=== PATIENT | male | born 1965 | race Asian ===

== ENCOUNTER 2016-10-29 13:18 | Emergency (ER) | payer OTHER ==
[2016-10-29 14:39] VITALS: BP 153/113
--- NOTE | 2016-10-29 15:32 | UC ---
Abdominal Pain Male HPI - HPI Summary HPI Summary: patient has had a couple days of oon and off abdominal pain in the lower abdomen , reports increased size of abdomen, is non compliant with HTN medication, complaining of headache, hx of Hep C although he is not very clear on treatments in the past. reports having a shot in his liver to dissolve the bad parts and be excreted in his BM's. - History of Current Complaint Chief Complaint: UCGI Stated Complaint: LOWER ABD PAIN Time Seen by Provider: 10/29/16 14:56 Hx Obtained From: Patient Onset/Duration: Sudden Onset, Lasting Days Timing: Constant Severity Initially: Moderate Severity Currently: Moderate Location: Discrete At: RLQ, Discrete At: LLQ Radiates: No Character: Aching, Sharp Aggravating Factor(s):: Nothing Alleviating Factor(s): Nothing - Allergies/Home Medications Allergies/Adverse Reactions: Allergies Allergy/AdvReac Type Severity Reaction Status Date / Time No Known Allergies Allergy Verified 03/16/14 14:53 PMH/Surg Hx/FS Hx/Imm Hx Previously Healthy: Yes Endocrine History Of: Denies: Diabetes, Thyroid Disease Cardiovascular History Of: Reports: Hypertension Denies: Cardiac Disorders Respiratory History Of: Denies: COPD, Asthma GI/ History Of: Denies: Ulcer Other History Of: Hepatitis C - Surgical History Surgical History: Yes Surgery Procedure, Year, and Place: hemorrhoidectomy - Family History Known Family History: Positive: Hypertension, Diabetes - Social History Alcohol Use: Occasionally Substance Use Type: None Smoking Status (MU): Light Every Day Tobacco Smoker Type: Cigarettes Amount Used/How Often: 1/2 to 1/3 ppd Have You Smoked in the Last Year: Yes Household Exposure Type: Cigarettes Review of Systems Constitutional: Negative Skin: Negative Eyes: Other - icteric ENT: Negative Respiratory: Negative Cardiovascular: Negative Gastrointestinal: Abdominal Pain Genitourinary: Negative Motor: Negative Neurovascular: Negative Musculoskeletal: Negative Neurological: Headache Psychological: Negative All Other Systems Reviewed And Are Negative: Yes Physical Exam Triage Information Reviewed: Yes Appearance: Well-Nourished, Ill-Appearing, Pain Distress Vital Signs: Initial Vital Signs Temp 98.5 F 10/29/16 14:32 Pulse 102 10/29/16 14:32 Resp 20 10/29/16 14:32 BP 153/113 10/29/16 14:32 Pulse Ox 100 10/29/16 14:32 Vital Signs Reviewed: Yes Eye Exam: Normal Eyes: Positive: Other: - sclera icteric and inflammed, hyphema in left eye noted ENT Exam: Normal ENT: Positive: Normal ENT inspection, Hearing grossly normal, Pharynx normal, Pharyngeal erythema, TMs normal Dental Exam: Normal Neck exam: Normal Neck: Positive: Supple, Nontender, No Lymphadenopathy Respiratory Exam: Normal Respiratory: Positive: Chest non-tender, Lungs clear, Normal breath sounds Cardiovascular: Positive: No Murmur, Pulses Normal, Tachycardia Abdomen Description: Positive: CVA Tenderness (R) - neg, CVA Tenderness (L) - neg, Distended - and fluctuant, pain with palpation is diffuse Bowel Sounds: Positive: Hyperactive Musculoskeletal: Positive: Strength Intact, ROM Intact, No Edema Neurological Exam: Normal Neurological: Positive: Alert, Muscle Tone Normal Psychological Exam: Normal Skin Exam: Normal Abd Pain Male Course/Dx - Course Course Of Treatment: hx obtained, exam performed, meds reviewed, patient is non compliant with his HTN meds, unclear on liver disease hx, do to the yellow eyes , ascites and HTN recommend he be transferred to the ER. Patient state he cant right now, will do it later, AMA paperwork signed, risks of not being evaluated given and patient expresses verbal understanding. - Differential Dx/Clinical Impression Differential Diagnosis/HQI/PQRI: Bowel Obstruction, Constipation, Diverticulitis , Hepatitis, Ureteral Stone, Urinary Tract Infection, Other - hernnia Provider Diagnoses: ascities. lower abdominal pain. Hypertension Discharge - Discharge Plan Condition: Stable Disposition: AGAINST MEDICAL ADVICE Referrals: Emmett Guevara MD [Primary Care Provider] -
== END 2016-10-29 15:56 | disposition left against medical advice (07) ==
LOC: UCEAST 13:18
DX: R18.8 Other ascites (principal); I10 Essential (primary) hypertension; F17.210 Nicotine dependence, cigarettes, uncomplicated; R10.30 Lower abdominal pain, unspecified; Z86.19 Personal history of other infectious and parasitic diseases
CPT/HCPCS: 99212; G0463

== ENCOUNTER 2016-10-30 11:36 | Emergency (ER) | payer OTHER ==
[2016-10-30] MEDS ORDERED: NS 0.9% 1000 ML* 1,000 ML IV ONE (15:29)
--- NOTE | 2016-10-30 16:04 | RAD ---
HISTORY: Chest pain COMPARISONS: June 26, 2004, report. Images are not available at the time of dictation VIEWS:1: Single frontal portable view of the chest at 3:45 PM FINDINGS: LINES AND TUBES: None. CARDIOMEDIASTINAL SILHOUETTE: The cardiomediastinal silhouette is normal for portable technique. PLEURA: The costophrenic angles are sharp. No pleural abnormalities are noted. LUNG PARENCHYMA: The lungs are clear. ABDOMEN: The upper abdomen is clear. There is no subphrenic gas. BONES AND SOFT TISSUES: No bone or soft tissue abnormalities are noted. IMPRESSION: NO ACTIVE CARDIOPULMONARY DISEASE.
[2016-10-30 16:06] LABS: Hematocrit 44 % (42-52); Hemoglobin 14.6 g/dl (14.0-18.0); Mean Corpuscular HGB Conc 33 g/dl (31-36); Mean Corpuscular Hemoglobin 28 pg (27-31); Mean Corpuscular Volume 85 fL (80-94); Mean Platelet Volume 8 um3 (7.4-10.4); Red Cell Distribution Width 15 % (10.5-15); White Blood Count 6.2 10^3/ul (3.5-10.8)
[2016-10-30 16:22] LABS: Albumin 4.2 g/dL (3.2-5.2); BUN/Creatinine Ratio 14.3 (8-20); C Reactive Protein 5.69 mg/L (< 5.00); Calcium 9.2 mg/dL (8.6-10.3); EGFR African American 113.9 (>60); EGFR Non-African American 88.6 (>60); Globulin 3.1 g/dL (2-4); Magnesium 2.3 mg/dL (1.9-2.7); Total Bilirubin 0.4 mg/dL (0.2-1.0); Total Protein 7.3 g/dL (6.4-8.9)
[2016-10-30 16:24] LABS: Troponin I 0.03 ng/mL (<0.04)
[2016-10-30 16:26] LABS: Potassium 3.9 mmol/L (3.5-5.0)
--- NOTE | 2016-10-30 16:47 | RAD ---
INDICATION: Left-sided testicular pain. COMPARISON: There are no prior studies available for comparison. TECHNIQUE: Multiple real-time images of the testicles were obtained including color Doppler images and Doppler tracings. FINDINGS: The testicles are normal in size and shape. There are a couple calcifications within the left testicle. No mass is seen. The right testicle measured 3.9 x 2.0 x 2.9 cm and the left testicle measured 3.7 x 1.7 x 2.6 cm. There is symmetric vascular flow within both testicles. The epididymides appear to be within normal limits. There are is small bilateral hydroceles. IMPRESSION: NO EVIDENCE FOR TESTICULAR TORSION OR EPIDIDYMITIS.
[2016-10-30] MEDS ORDERED: Iohexol 300* (CONTRAST) 10 ML SDV IV ONE (16:50)
[2016-10-30 16:56] LABS: TSH (Thyroid Stimulating Horm) 0.5 mcIU/mL (0.34-5.60)
[2016-10-30 18:50] LABS: Urine Bilirubin Negative (Negative); Urine Glucose Negative (Negative); Urine Nitrite Negative (Negative)
--- NOTE | 2016-10-30 18:51 | RAD ---
INDICATION: Left lower quadrant abdominal pain. COMPARISON: Comparison is made with a prior CT of the abdomen and pelvis from November 20, 2009. TECHNIQUE: A CT scan of the abdomen and pelvis was performed with intravenous and oral contrast following intravenous injection of 100 ml of Omnipaque 300 nonionic contrast. Contiguous axial sections were obtained from the lung bases through the symphysis pubis. Images were reconstructed in the coronal and sagittal planes. FINDINGS: The lung bases are clear. No pleural effusion is present. The liver has a lobulated contour suggesting the possibility of cirrhosis which appears unchanged from the prior exam The portal vein appears patent. No significant focal hepatic abnormality is seen. No calcified gallstones are noted. The spleen is within normal limits in size. The pancreas appears to be within normal limits. The kidneys and adrenal glands are normal in size. No hydronephrosis is seen. There are small bilateral renal cysts present. The aorta is normal in caliber and demonstrates homogeneous contrast opacification. No significant enlarged retroperitoneal lymph nodes are seen. The stomach, small and large bowel appear nondistended. The appendix is within normal limits. There is mild to moderate descending and sigmoid diverticulosis without evidence for diverticulitis. No free intraperitoneal air or fluid is seen. No significant focal osseous abnormality is seen. IMPRESSION: 1. NO EVIDENCE FOR ACUTE FINDING OR CAUSE FOR THE PATIENT'S ABDOMINAL PAIN IS SEEN. 2. THE LIVER HAS A MILDLY LOBULATED CONTOUR SUGGESTING THE POSSIBILITY OF CIRRHOSIS WHICH IS UNCHANGED FROM THE PRIOR STUDY.
--- NOTE | 2016-10-30 19:28 | ED ---
Maryuri Howe Alok, scribed for Patel Bueno MD on 10/30/16 at 1551 . Abdominal Pain/Male - HPI Summary HPI Summary: 51 y/o male presents to the ED with LLQ pain ongoing for the last few months and worsening today. Patient states that this abd pain is worsened by palpation , heavy lifting, and uncomfortable positioning as well as improves with rest. At worse his abd pain registers at a 7 out of 10 in severity. Pt also felt testicular pain two days ago as well as blood in stool off and on again for the past few months. Pt denies feeling lumps or bumps or recent abd-related surgery. His BM have been normal and pt denies dysuria. Pt also adds sharp left sided CP yesterday while holding his daughter at a 9 out of 10 in severity which lasted about 30 seconds before subsiding spontaneously with rest. This pain did not radiate to other part of the body and was accompanied by what felt like a palpitation. Pt denies accompanying SOB , nausea, diaphoresis, or lightheadedness. The pt states that he has had similar bouts of CP every two weeks ago for the past few months. PMHx includes Hepatitis C, hemorrhoids, HTN, and HLD. Pt smokes cigarettes regularly and denies h/o blot clots. The patient is not on any mediations. FHMx includes CAD, HTN, Stroke, and aneurysm. - History of Current Complaint Chief Complaint: EDAbdPain Stated Complaint: STOMACH PAIN Time Seen by Provider: 10/30/16 14:51 Hx Obtained From: Patient Onset/Duration: Gradual Onset, Lasting Weeks, Still Present Timing: Constant Severity Initially: Moderate Severity Currently: Moderate Pain Intensity: 5 Pain Scale Used: 0-10 Numeric Location: Discrete At: LLQ, Groin Radiates: No Aggravating Factor(s): Other: - Uncomfortable position, Heavy lifting, Palpation Alleviating Factor(s): Other: - Restful position Associated Signs And Symptoms: Positive: Chest Pain, Blood in Stool, Other - Testicular Pain. Negative: Diaphoresis, Urinary Symptoms, Nausea - Allergies/Home Medications Allergies/Adverse Reactions: Allergies Allergy/AdvReac Type Severity Reaction Status Date / Time No Known Allergies Allergy Verified 03/16/14 14:53 PMH/Surg Hx/FS Hx/Imm Hx Endocrine/Hematology History: Denies: Hx Diabetes, Hx Thyroid Disease Cardiovascular History: Reports: Hx Hypertension Respiratory History: Denies: Hx Asthma, Hx Chronic Obstructive Pulmonary Disease (COPD) GI History: Denies: Hx Ulcer - Surgical History Surgery Procedure, Year, and Place: hemorrhoidectomy Infectious Disease History: Denies: Hx Clostridium Difficile, Hx Hepatitis, Hx Human Immunodeficiency Virus (HIV), Hx of Known/Suspected MRSA, Hx Shingles, Hx Tuberculosis, Hx Known/ Suspected VRE, Hx Known/Suspected VRSA, History Other Infectious Disease, Traveled Outside the [place] in Last 30 Days - Family History Known Family History: Positive: Hypertension, Diabetes - Social History Occupation: Employed Full-time Lives: With Family Alcohol Use: Occasionally Substance Use Type: Reports: None Smoking Status (MU): Light Every Day Tobacco Smoker Type: Cigarettes Amount Used/How Often: 1/2 to 1/3 ppd Have You Smoked in the Last Year: Yes Review of Systems Negative: Fever, Skin Diaphoresis Positive: Chest Pain Negative: Shortness Of Breath Positive: Abdominal Pain. Negative: Nausea Genitourinary: Other - Testicular Pain Negative: dysuria Negative: Edema All Other Systems Reviewed And Are Negative: Yes Physical Exam Triage Information Reviewed: Yes Vital Signs On Initial Exam: Initial Vitals Temp Pulse Resp BP Pulse Ox 98.3 F 87 20 158/98 100 10/30/16 11:49 10/30/16 11:49 10/30/16 11:49 10/30/16 11:49 10/30/16 11:49 Vital Signs Reviewed: Yes Appearance: Positive: Well-Appearing, No Pain Distress Skin: Positive: Warm, Skin Color Reflects Adequate Perfusion, Dry Head/Face: Positive: Normal Head/Face Inspection Eyes: Positive: EOMI, NHAN ENT: Positive: Normal ENT inspection Neck: Positive: Supple, Nontender Respiratory/Lung Sounds: Positive: Clear to Auscultation, Breath Sounds Present Cardiovascular: Positive: RRR Abdomen Description: Positive: Soft, Other: - Mild LLQ tenderness. Bowel Sounds: Positive: Present Male Genital Exam: Positive: other - No masses. Nontender. No lesions. Musculoskeletal: Positive: Normal, Strength/ROM Intact. Negative: Edema Left, Edema Right Neurological: Positive: Normal, Sensory/Motor Intact, Alert, Oriented to Person Place, Time Psychiatric: Positive: Affect/Mood Appropriate - [place] Coma Scale Coma Scale Total: 15 Diagnostics - Vital Signs Vital Signs Temp Pulse Resp BP Pulse Ox 10/30/16 14:44 97.5 F 78 20 183/111 98 10/30/16 14:30 75 22 183/111 98 10/30/16 14:28 76 99 10/30/16 14:27 183/110 10/30/16 14:14 97.5 F 77 20 176/116 100 10/30/16 13:04 97.2 F 72 20 169/105 100 10/30/16 11:49 98.3 F 87 20 158/98 100 - Laboratory Lab Results: Lab Results 10/30/16 10/30/16 10/30/16 Range/Units 15:45 15:45 15:45 WBC 6.2 (3.5-10.8) 10^3/ul RBC 5.20 (4.0-5.4) 10^6/ul Hgb 14.6 (14.0-18.0) g/dl Hct 44 (42-52) % MCV 85 (80-94) fL MCH 28 (27-31) pg MCHC 33 (31-36) g/dl RDW 15 (10.5-15) % Plt Count 226 (150-450) 10^3/ul MPV 8 (7.4-10.4) um3 Neut % (Auto) 47.1 (38-83) % Lymph % (Auto) 38.4 (25-47) % [place] % (Auto) 11.5 H (1-9) % Eos % (Auto) 2.4 (0-6) % Baso % (Auto) 0.6 (0-2) % Absolute Neuts (auto) 2.9 (1.5-7.7) 10^3/ul Absolute Lymphs (auto) 2.4 (1.0-4.8) 10^3/ul Absolute Monos (auto) 0.7 (0-0.8) 10^3/ul Absolute Eos (auto) 0.1 (0-0.6) 10^3/ul Absolute Basos (auto) 0 (0-0.2) 10^3/ul Absolute Nucleated RBC 0.01 10^3/ul Nucleated RBC % 0.2 INR (Anticoag Therapy) 0.89 (0.89-1.11) APTT 29.4 (26.0-36.3) seconds D-Dimer, Quantitative < 200 (Less Than 230) ng/mL Sodium 138 (133-145) mmol/L Potassium 3.9 (3.5-5.0) mmol/L Chloride 105 (101-111) mmol/L Carbon Dioxide 27 (22-32) mmol/L Anion Gap 6 (2-11) mmol/L BUN 13 (6-24) mg/dL Creatinine 0.91 (0.67-1.17) mg/dL Est GFR ( Amer) 113.9 (>60) Est GFR (Non-Af Amer) 88.6 (>60) BUN/Creatinine Ratio 14.3 (8-20) Glucose 95 (70-100) mg/dL Lactic Acid (0.5-2.0) mmol/L Calcium 9.2 (8.6-10.3) mg/dL Magnesium 2.3 (1.9-2.7) mg/dL Total Bilirubin 0.40 (0.2-1.0) mg/dL AST 25 (13-39) U/L ALT 28 (7-52) U/L Alkaline Phosphatase 61 (34-104) U/L Total Creatine Kinase 446 H (10-223) U/L CK-MB (CK-2) 6.4 H (0.6-6.3) ng/mL Troponin I 0.03 (<0.04) ng/mL C-Reactive Protein 5.69 H (< 5.00) mg/L B-Natriuretic Peptide ( - 100) pg/mL Total Protein 7.3 (6.4-8.9) g/dL Albumin 4.2 (3.2-5.2) g/dL Globulin 3.1 (2-4) g/dL Albumin/Globulin Ratio 1.4 (1-3) Lipase 39 (11.0-82.0) U/L TSH 0.50 (0.34-5.60) mcIU/mL Urine Color Urine Appearance Urine pH (5-9) Ur Specific [place] (1.010-1.030) Urine Protein (Negative) Urine Ketones (Negative) Urine Blood (Negative) Urine Nitrate (Negative) Urine Bilirubin (Negative) Urine Urobilinogen (Negative) Ur Leukocyte Esterase (Negative) Urine Glucose (Negative) Urine Ascorbic Acid (Negative) 10/30/16 10/30/16 10/30/16 Range/Units 15:45 15:45 18:35 WBC (3.5-10.8) 10^3/ul RBC (4.0-5.4) 10^6/ul Hgb (14.0-18.0) g/dl Hct (42-52) % MCV (80-94) fL MCH (27-31) pg MCHC (31-36) g/dl RDW (10.5-15) % Plt Count (150-450) 10^3/ul MPV (7.4-10.4) um3 Neut % (Auto) (38-83) % Lymph % (Auto) (25-47) % [place] % (Auto) (1-9) % Eos % (Auto) (0-6) % Baso % (Auto) (0-2) % Absolute Neuts (auto) (1.5-7.7) 10^3/ul Absolute Lymphs (auto) (1.0-4.8) 10^3/ul Absolute Monos (auto) (0-0.8) 10^3/ul Absolute Eos (auto) (0-0.6) 10^3/ul Absolute Basos (auto) (0-0.2) 10^3/ul Absolute Nucleated RBC 10^3/ul Nucleated RBC % INR (Anticoag Therapy) (0.89-1.11) APTT (26.0-36.3) seconds D-Dimer, Quantitative (Less Than 230) ng/mL Sodium (133-145) mmol/L Potassium (3.5-5.0) mmol/L Chloride (101-111) mmol/L Carbon Dioxide (22-32) mmol/L Anion Gap (2-11) mmol/L BUN (6-24) mg/dL Creatinine (0.67-1.17) mg/dL Est GFR ( Amer) (>60) Est GFR (Non-Af Amer) (>60) BUN/Creatinine Ratio (8-20) Glucose (70-100) mg/dL Lactic Acid 1.3 (0.5-2.0) mmol/L Calcium (8.6-10.3) mg/dL Magnesium (1.9-2.7) mg/dL Total Bilirubin (0.2-1.0) mg/dL AST (13-39) U/L ALT (7-52) U/L Alkaline Phosphatase (34-104) U/L Total Creatine Kinase (10-223) U/L CK-MB (CK-2) (0.6-6.3) ng/mL Troponin I (<0.04) ng/mL C-Reactive Protein (< 5.00) mg/L B-Natriuretic Peptide 60 ( - 100) pg/mL Total Protein (6.4-8.9) g/dL Albumin (3.2-5.2) g/dL Globulin (2-4) g/dL Albumin/Globulin Ratio (1-3) Lipase (11.0-82.0) U/L TSH (0.34-5.60) mcIU/mL Urine Color Yellow Urine Appearance Clear Urine pH 8.0 (5-9) Ur Specific [place] 1.019 (1.010-1.030) Urine Protein Negative (Negative) Urine Ketones Negative (Negative) Urine Blood Negative (Negative) Urine Nitrate Negative (Negative) Urine Bilirubin Negative (Negative) Urine Urobilinogen Negative (Negative) Ur Leukocyte Esterase Negative (Negative) Urine Glucose Negative (Negative) Urine Ascorbic Acid * H (Negative) Result Diagrams: 10/30/16 15:45 10/30/16 15:45 Lab Statement: Any lab studies that have been ordered have been reviewed, and results considered in the medical decision making process. - Radiology CXR Xray Interpretation: Positive (See Comments) - IMPRESSION: NO ACTIVE CARDIOPULMONARY DISEASE. Radiology Interpretation Completed By: Radiologist - CT Abd/Pel CT CT Interpretation: Positive (See Comments) - IMPRESSION: 1. NO EVIDENCE FOR ACUTE FINDING OR CAUSE FOR THE PATIENT'S ABDOMINAL PAIN IS SEEN. 2. THE LIVER HAS A MILDLY LOBULATED CONTOUR SUGGESTING THE POSSIBILITY OF CIRRHOSIS WHICH IS UNCHANGED FROM THE PRIOR STUDY. CT Interpretation Completed By: Radiologist - Additional Comments Diagnostic Additional Comments: Testicular US - IMPRESSION: NO EVIDENCE FOR TESTICULAR TORSION OR EPIDIDYMITIS. Re-Evaluation - Re-Evaluation First Eval Re-Evaluation Time: 19:20 Abdominal Pain Fem Course/Dx - Course Course Of Treatment: NO CRITICAL CARE TIME Assessment/Plan: DISCUSSED RESULTS WITH PATIENT. CHEST PAIN WAS 10/29/16 SO, NO TROPONIN RECHECK. DISCUSSED ADMISSION FOR CHEST PAIN/STRESS TEST. PATIENT DECLINED, PREFERS TO F/U WITH PMD OUT PATIENT. DISCHARGE HOME STABLE. - Diagnoses Provider Diagnoses: Abdominal pain, Chest pain Discharge - Discharge Plan Condition: Stable Disposition: HOME Patient Education Materials: Acute Abdominal Pain (ED), Chest Pain (ED) Forms: *Work Release Referrals: Emmett Guevara MD [Primary Care Provider] - Additional Instructions: FOLLOW UP WITH YOUR DOCTOR. DISCUSS HAVING A HEART STRESS TEST FOR YOUR CHEST PAIN EVALUATION. RETURN TO THE EMERGENCY DEPARTMENT FOR ANY WORSENING OF YOUR CONDITION; CHEST PAIN, SHORTNESS OF BREATH, PAIN, YOU FEEL ILL OR QUESTIONS OR CONCERNS. The documentation as recorded by the Maryuri bernabe Alok accurately reflects the service I personally performed and the decisions made by me, Patel Bueno MD.
[2016-10-30] MEDS ORDERED: Nadolol TAB* 40 MG PO ONE (19:45)
[2016-10-30] MEDS ORDERED: Diltiazem TAB* 60 MG PO ONE (20:59)
[2016-10-30 21:59] VITALS: BP 179/115
== END 2016-10-30 21:27 | disposition home or self-care (01) ==
LOC: ED 11:36
DX: R10.32 Left lower quadrant pain (principal); R07.9 Chest pain, unspecified; I10 Essential (primary) hypertension; E78.5 Hyperlipidemia, unspecified; F17.210 Nicotine dependence, cigarettes, uncomplicated; B19.20 Unspecified viral hepatitis C without hepatic coma
CPT/HCPCS: 36415; 71010; 74177; 76870; 80053; 81003; 82550; 82553; 83605; 83690; 83735; 83880; 84443; 84484; 85025; 85379; 85610; 85730; 86140; 96360; 99285; A9270-GY; Q9967

== ENCOUNTER 2017-09-30 14:33 | Emergency (ER) | payer OTHER ==
[2017-09-30] MEDS ORDERED: Lidocaine 2% VISCOUS* 15 ML UDC PO ONE (15:58)
[2017-09-30] MEDS ORDERED: Pantoprazole IV* 40 MG IV ONE (15:58)
[2017-09-30] MEDS ORDERED: Ondansetron INJ* 2 MG/ML VIAL IV ONE (15:58)
[2017-09-30] MEDS ORDERED: Al Hydrox/Mg Hydrox/Simet LIQ* 30 ML UDC PO ONE (15:58)
[2017-09-30] MEDS: NS 0.9% 1000 ML* 2,000 ML IV ONE (16:22)
[2017-09-30 16:28] LABS: ABS Basophils 0 10^3/ul (0-0.2); ABS Eosinophils 0.1 10^3/ul (0-0.6); ABS Lymphocytes 2.2 10^3/ul (1.0-4.8); ABS Monocytes 0.6 10^3/ul (0-0.8); ABS Neutrophils 3.5 10^3/ul (1.5-7.7); ABS Nucleated RBC 0 10^3/ul; Eosinophil % 1.7 % (0-6); Hematocrit 39 % (42-52); Hemoglobin 13.1 g/dl (14.0-18.0); Lymphocyte % 34.4 % (25-47); Mean Corpuscular HGB Conc 34 g/dl (31-36); Mean Corpuscular Hemoglobin 28 pg (27-31); Mean Corpuscular Volume 84 fL (80-94); Mean Platelet Volume 7.5 um3 (7.4-10.4); Nucleated Red Blood Cells % 0; Platelet Count 215 10^3/ul (150-450); Red Blood Count 4.68 10^6/ul (4.0-5.4); Red Cell Distribution Width 16 % (10.5-15); White Blood Count 6.4 10^3/ul (3.5-10.8)
[2017-09-30 16:44] LABS: INR 0.91 (0.77-1.02); Urine Appearance Clear; Urine Blood 1+ (Negative); Urine Color Yellow; Urine Ketones Negative (Negative); Urine Protein Negative (Negative); Urine Specific Gravity 1.017 (1.010-1.030); Urine Urobilinogen Negative (Negative)
[2017-09-30 16:48] LABS: EGFR Non-African American 82.9 (>60)
[2017-09-30] MEDS ORDERED: Morphine INJ* 4 MG/ML 1 ML SYRINGE (NEW SYRINGE VERSION) IV ONE ×2 (17:27→20:27)
--- NOTE | 2017-09-30 17:50 | RAD ---
INDICATION: Upper abdominal pain COMPARISON: Chest x-ray dated May 14, 2017 TECHNIQUE: Single AP portable view of the chest was obtained. FINDINGS: Image quality is compromised due to the relative inferiority of a portable chest x-ray. The heart and mediastinum exhibit normal size and contour. The lungs are grossly clear. There is no evidence of a large pleural effusion. Visualized bones are normal for the patient's age. IMPRESSION: No radiographic evidence for acute cardiopulmonary abnormality on this portable chest x-ray.
[2017-09-30] MEDS ORDERED: Iohexol 300* (CONTRAST) 10 ML SDV IV ONE (17:51)
--- NOTE | 2017-09-30 19:04 | ED ---
Carlos Howe Thomas, scribed for Patel Bueno MD on 09/30/17 at 1622 . Abdominal Pain/Male - HPI Summary HPI Summary: The patient is a 52 year old male complaining of upper abdominal pain for the last three days. He had a colonoscopy about three weeks ago and since then he has noted small amounts of blood in his stool in the morning. He denies lightheadedness. - History of Current Complaint Chief Complaint: EDAbdPain Stated Complaint: ABD PAIN Time Seen by Provider: 09/30/17 15:44 Hx Obtained From: Patient Onset/Duration: Lasting Days - 3, Still Present Timing: Constant Severity Currently: Severe Pain Intensity: 10 Pain Scale Used: 0-10 Numeric Location: Discrete At: RUQ, Discrete At: LUQ, Epigastric Aggravating Factor(s): Nothing Alleviating Factor(s): Nothing Associated Signs And Symptoms: Positive: Blood in Stool - Allergies/Home Medications Allergies/Adverse Reactions: Allergies Allergy/AdvReac Type Severity Reaction Status Date / Time No Known Allergies Allergy Verified 03/16/14 14:53 Home Medications: Home Medications Amitriptyline TAB* [Elavil TAB*] 25 mg PO BEDTIME 09/30/17 [History Confirmed ] NIFEdipine ER TAB* [Procardia Xl TAB*] 90 mg PO DAILY 09/30/17 [History Confirmed 09/30/17] Nadolol (NF) 20 mg PO DAILY 09/30/17 [History Confirmed 09/30/17] Omeprazole CAP* [Prilosec CAP* 20 MG] 40 mg PO 0700 09/30/17 [History Confirmed 09/30/17] Spironolactone TAB* [Aldactone TAB*] 25 mg PO DAILY 09/30/17 [History Confirmed 09/30/17] Valsartan/HCTZ 320/25(NF) [Diovan Hct 320/25(NF)] 1 tab PO DAILY 09/30/17 [ History Confirmed 09/30/17] PMH/Surg Hx/FS Hx/Imm Hx Endocrine/Hematology History: Denies: Hx Diabetes, Hx Thyroid Disease Cardiovascular History: Reports: Hx Hypertension Respiratory History: Denies: Hx Asthma, Hx Chronic Obstructive Pulmonary Disease (COPD) GI History: Denies: Hx Ulcer - Surgical History Surgery Procedure, Year, and Place: hemorrhoidectomy Infectious Disease History: No Infectious Disease History: Denies: Hx Clostridium Difficile, Hx Hepatitis, Hx Human Immunodeficiency Virus (HIV), Hx of Known/Suspected MRSA, Hx Shingles, Hx Tuberculosis, Hx Known/ Suspected VRE, Hx Known/Suspected VRSA, History Other Infectious Disease, Traveled Outside the [place] in Last 30 Days - Family History Known Family History: Positive: Hypertension, Diabetes, Other - Mother's side: [place]. - Social History Alcohol Use: Occasionally Substance Use Type: Reports: None Smoking Status (MU): Light Every Day Tobacco Smoker Type: Cigarettes Amount Used/How Often: 1/2 to 1/3 ppd Have You Smoked in the Last Year: Yes Review of Systems Negative: Fever Positive: Abdominal Pain, Other - Blood in stool Neurological: Other - Lightheadedness All Other Systems Reviewed And Are Negative: Yes Physical Exam - Summary Physical Exam Summary: General: well-appearing, mild pain distress Skin: warm, color reflects adequate perfusion, dry Head: normal Eyes: EOMI, NHAN ENT: normal Neck: supple, nontender Respiratory: CTA, breath sounds present Cardiovascular: RRR Abdomen: Soft. Tender to palpation to the epigasrium and LUQ. Bowel: hypoactive Musculoskeletal: normal, strength/ROM intact Neurological: normal, sensory/motor intact, A&O x3 Psycholoegical: affect/mood appropriat Triage Information Reviewed: Yes Vital Signs On Initial Exam: Initial Vitals Temp Pulse Resp BP Pulse Ox 98.3 F 81 20 195/114 99 09/30/17 14:35 09/30/17 14:35 09/30/17 14:35 09/30/17 14:35 09/30/17 14:35 Vital Signs Reviewed: Yes Diagnostics - Vital Signs Vital Signs Temp Pulse Resp BP Pulse Ox 09/30/17 14:35 98.3 F 81 20 195/114 99 - Laboratory Lab Results: Lab Results 09/30/17 09/30/17 09/30/17 Range/Units 16:15 16:15 16:15 WBC 6.4 (3.5-10.8) 10^3/ul RBC 4.68 (4.0-5.4) 10^6/ul Hgb 13.1 L (14.0-18.0) g/dl Hct 39 L (42-52) % MCV 84 (80-94) fL MCH 28 (27-31) pg MCHC 34 (31-36) g/dl RDW 16 H (10.5-15) % Plt Count 215 (150-450) 10^3/ul MPV 7.5 (7.4-10.4) um3 Neut % (Auto) 54.2 (38-83) % Lymph % (Auto) 34.4 (25-47) % [place] % (Auto) 9.1 H (0-7) % Eos % (Auto) 1.7 (0-6) % Baso % (Auto) 0.6 (0-2) % Absolute Neuts (auto) 3.5 (1.5-7.7) 10^3/ul Absolute Lymphs (auto) 2.2 (1.0-4.8) 10^3/ul Absolute Monos (auto) 0.6 (0-0.8) 10^3/ul Absolute Eos (auto) 0.1 (0-0.6) 10^3/ul Absolute Basos (auto) 0 (0-0.2) 10^3/ul Absolute Nucleated RBC 0 10^3/ul Nucleated RBC % 0 INR (Anticoag Therapy) 0.91 (0.77-1.02) APTT 29.7 (26.0-36.3) seconds Sodium 136 (133-145) mmol/L Potassium 3.5 (3.5-5.0) mmol/L Chloride 103 (101-111) mmol/L Carbon Dioxide 26 (22-32) mmol/L Anion Gap 7 (2-11) mmol/L BUN 12 (6-24) mg/dL Creatinine 0.96 (0.67-1.17) mg/dL Est GFR ( Amer) 106.6 (>60) Est GFR (Non-Af Amer) 82.9 (>60) BUN/Creatinine Ratio 12.5 (8-20) Glucose 91 (70-100) mg/dL Lactic Acid (0.5-2.0) mmol/L Calcium 9.7 (8.6-10.3) mg/dL Magnesium 2.0 (1.9-2.7) mg/dL Total Bilirubin 0.30 (0.2-1.0) mg/dL AST 21 (13-39) U/L ALT 24 (7-52) U/L Alkaline Phosphatase 63 (34-104) U/L Troponin I 0.04 H* (<0.04) ng/mL C-Reactive Protein 14.92 H (< 5.00) mg/L Total Protein 7.7 (6.4-8.9) g/dL Albumin 4.4 (3.2-5.2) g/dL Globulin 3.3 (2-4) g/dL Albumin/Globulin Ratio 1.3 (1-3) Lipase 29 (11.0-82.0) U/L TSH 0.59 (0.34-5.60) mcIU/mL Urine Color Urine Appearance Urine pH (5-9) Ur Specific [place] (1.010-1.030) Urine Protein (Negative) Urine Ketones (Negative) Urine Blood (Negative) Urine Nitrate (Negative) Urine Bilirubin (Negative) Urine Urobilinogen (Negative) Ur Leukocyte Esterase (Negative) Urine WBC (Auto) (Absent) Urine RBC (Auto) (Absent) Ur Squamous Epith Cells (Absent) Urine Bacteria (Absent) Urine Glucose (Negative) 09/30/17 09/30/17 Range/Units 16:15 16:15 WBC (3.5-10.8) 10^3/ul RBC (4.0-5.4) 10^6/ul Hgb (14.0-18.0) g/dl Hct (42-52) % MCV (80-94) fL MCH (27-31) pg MCHC (31-36) g/dl RDW (10.5-15) % Plt Count (150-450) 10^3/ul MPV (7.4-10.4) um3 Neut % (Auto) (38-83) % Lymph % (Auto) (25-47) % [place] % (Auto) (0-7) % Eos % (Auto) (0-6) % Baso % (Auto) (0-2) % Absolute Neuts (auto) (1.5-7.7) 10^3/ul Absolute Lymphs (auto) (1.0-4.8) 10^3/ul Absolute Monos (auto) (0-0.8) 10^3/ul Absolute Eos (auto) (0-0.6) 10^3/ul Absolute Basos (auto) (0-0.2) 10^3/ul Absolute Nucleated RBC 10^3/ul Nucleated RBC % INR (Anticoag Therapy) (0.77-1.02) APTT (26.0-36.3) seconds Sodium (133-145) mmol/L Potassium (3.5-5.0) mmol/L Chloride (101-111) mmol/L Carbon Dioxide (22-32) mmol/L Anion Gap (2-11) mmol/L BUN (6-24) mg/dL Creatinine (0.67-1.17) mg/dL Est GFR ( Amer) (>60) Est GFR (Non-Af Amer) (>60) BUN/Creatinine Ratio (8-20) Glucose (70-100) mg/dL Lactic Acid 0.8 (0.5-2.0) mmol/L Calcium (8.6-10.3) mg/dL Magnesium (1.9-2.7) mg/dL Total Bilirubin (0.2-1.0) mg/dL AST (13-39) U/L ALT (7-52) U/L Alkaline Phosphatase (34-104) U/L Troponin I (<0.04) ng/mL C-Reactive Protein (< 5.00) mg/L Total Protein (6.4-8.9) g/dL Albumin (3.2-5.2) g/dL Globulin (2-4) g/dL Albumin/Globulin Ratio (1-3) Lipase (11.0-82.0) U/L TSH (0.34-5.60) mcIU/mL Urine Color Yellow Urine Appearance Clear Urine pH 5.0 (5-9) Ur Specific [place] 1.017 (1.010-1.030) Urine Protein Negative (Negative) Urine Ketones Negative (Negative) Urine Blood 1+ A (Negative) Urine Nitrate Negative (Negative) Urine Bilirubin Negative (Negative) Urine Urobilinogen Negative (Negative) Ur Leukocyte Esterase Negative (Negative) Urine WBC (Auto) Trace(0-5/hpf) (Absent) Urine RBC (Auto) Trace(0-2/hpf) (Absent) Ur Squamous Epith Cells Present A (Absent) Urine Bacteria Absent (Absent) Urine Glucose Negative (Negative) Result Diagrams: 09/30/17 16:15 09/30/17 16:15 Lab Statement: Any lab studies that have been ordered have been reviewed, and results considered in the medical decision making process. - Radiology CXR Xray Interpretation: No Acute Changes - IMPRESSION: No radiographic evidence for acute cardiopulmonary abnormality on this portable chest x-ray. Dr. Bueno has reviewed this report. Radiology Interpretation Completed By: Radiologist - CT CT Abd/Pel CT Interpretation Completed By: ED Physician - READ PENDING--SEE MEDITECH - EKG 16:00 Cardiac Rate: NL EKG Rhythm: Sinus Rhythm - at 62 BPM Ectopy: None EKG Interpretation: ST elevations, probably normal, early repolarization pattern. Abdominal Pain Fem Course/Dx - Course Course Of Treatment: Medications reviewed. BP noted and patient urged follow up with primary care. - Diagnoses Provider Diagnoses: Uncontrolled hypertension, Abdominal pain Discharge - Sign-Out/Discharge Documenting (check all that apply): Sign-Out Patient Signing out patient TO: Oziel Bolton - REPEAT TROPONIN AND CT ABD/PELVIS READ PENDING - Discharge Plan Condition: Stable Referrals: Emmett Guevara MD [Primary Care Provider] - - Billing Disposition and Condition Condition: STABLE The documentation as recorded by the Carlos bernabe Thomas accurately reflects the service I personally performed and the decisions made by , Patel Bueno MD.
--- NOTE | 2017-09-30 19:19 | RAD ---
CLINICAL HISTORY: Upper abdominal pain and hematochezia COMPARISON: Most recent CT of the abdomen and pelvis is dated October 30, 2016 TECHNIQUE: Contrast enhanced CT examination of the abdomen and pelvis from the lung bases through the initial tuberosities. The patient received 100 mL Omnipaque 300 intravenously prior to imaging.The patient received oral contrast as well prior to imaging. FINDINGS: Unless otherwise specified comparisons below reference the October 30, 2016 CT examination VISUALIZED LUNG BASES: The visualized lung bases are grossly clear. There is no pleural effusion. ABDOMEN AND PELVIS: Similar to the prior CT examination, the external contour of the left lobe of the liver is lobular. There are no focal masses. There is no pathologic dilatation of the portal vein is system. The spleen, pancreas and adrenal glands are grossly normal in appearance. The gallbladder is normal. The kidneys are normal in appearance without focal mass, calcification or signs of hydronephrosis. Fluid density renal cysts are noted. The oral contrast has progressed as far as the cecum. The small and large bowel are not distended. The partially gas and stool-filled appendix is identified in the right lower quadrant measuring 5 mm in diameter (coronal images 41 and 45). There are scattered diverticula at the rectosigmoid colon but no focal inflammatory changes characteristic of acute diverticulitis. There is no gross retroperitoneal or mesenteric lymphadenopathy. The pelvic viscera is normal in appearance. The abdominal aorta and iliac arteries are normal in course and diameter. Degenerative changes include multilevel loss of intervertebral disc height involving the lower thoracic and lumbar spine.There are no sinister bone lesions. IMPRESSION: 1. There is no CT apparent acute gastrointestinal abnormality that would indicate that would account for the patient's current clinical presentation. 2. The service of the liver is lobular, similar to prior CT examinations. This appearance could be seen in the setting of cirrhosis. Please correlate to LFTs. 3. Additional chronic and degenerative changes described in the body the report.
--- NOTE | 2017-09-30 20:54 | ED ---
Kofi Howe Stephanie, michelineibed for Oziel Bolton MD on 09/30/17 at 2018 . Progress - Progress Note Progress Note: CT abd/Pelvis reveals: 1. There is no CT apparent acute gastrointestinal abnormality that would indicate that would account for the patient's current clinical presentation. 2. The service of the liver is lobular, similar to prior CT examinations. This appearance could be seen in the setting of cirrhosis. Please correlate to LFTs. 3. Additional chronic and degenerative changes described in the body the report. ED physician has reviewed this report. - EKG/XRAY/CT EKG: NSR - 20:36, 63 BPM, unchanged from - isolated T wave inversion in lead III seen on prior EKGs Comments: No acute ischemic ST changes, no ectopy Re-Evaluation - Re-Evaluation First Eval Re-Evaluation Time: 20:25 Change: Improved - The patient feels mildly improved. He has minimal abd tenderness at this time. ED physician discussed the importance of follow-up with a GI physician and planner internship. The patient agrees to return to the ED for any worsening symptoms. Course/Dx - Course Course Of Treatment: Medications reviewed. BP noted and patient urged follow up with primary care. Repeat troponin is negative. Repeat EKG is unremarkable. The pt denies CP or SOB at this time. He agrees to and understands discharge instructions.Pt feels better after medications received. Pt is in no acute distress. - Diagnoses Provider Diagnoses: Uncontrolled hypertension, Abdominal pain, Diverticulosis, Chest pain Discharge - Sign-Out/Discharge Documenting (check all that apply): Discharge - Discharge Plan Condition: Stable Disposition: HOME Patient Education Materials: Acute Abdominal Pain (ED), Chest Pain (ED) Forms: *Work Release Referrals: Emmett Guevara MD [Primary Care Provider] - Wilfredo Lester MD [Medical Doctor] - Additional Instructions: PLEASE TAKE BLOOD PRESSURE MEDICATIONS DIRECTED PLEASE MAKE AN APPOINTMENT FIRST THING IN THE MORNING TO BE SEEN BY A CLEANING STAFF SUPERVISOR AND GI DOCTOR WITHIN 1-2 WEEKS PLEASE RETURN IMMEDIATELY TO THE ER IF YOU HAVE ANY WORSENING OR CONCERNING SYMPTOMS PLEASE MAKE AN APPOINTMENT TO BE SEEN BY YOUR PRIMARY CARE DOCTOR WITHIN 1 WEEK - Billing Disposition and Condition Condition: STABLE Disposition: HOME The documentation as recorded by the Kofi bernabe Stephanie accurately reflects the service I personally performed and the decisions made by me, Oziel Bolton MD.
[2017-09-30 21:14] VITALS: BP 184/112
== END 2017-09-30 21:12 | disposition home or self-care (01) ==
LOC: ED 14:33
DX: R10.12 Left upper quadrant pain (principal); R10.11 Right upper quadrant pain; R10.13 Epigastric pain; K92.1 Melena; I10 Essential (primary) hypertension; F17.210 Nicotine dependence, cigarettes, uncomplicated
CPT/HCPCS: 36415; 71045; 74177; 80053; 81003; 81015; 83605; 83690; 83735; 84443; 84484; 85025; 85610; 85730; 86140; 87086; 93005; 96374; 96375; 96376; 99283; A9270-GY; J2270; J2405; Q9967

== ENCOUNTER 2019-03-23 12:30 | Emergency (ER) | payer OTHER ==
[2019-03-23 13:05] LABS: ABS Eosinophils 0.1 10^3/ul (0-0.6); ABS Lymphocytes 2.3 10^3/ul (1.0-4.8); ABS Monocytes 0.6 10^3/ul (0-0.8); ABS Neutrophils 2.2 10^3/ul (1.5-7.7); Eosinophil % 1.2 %; Hematocrit 46 % (42-52); Hemoglobin 15.4 g/dL (14.0-18.0); Mean Corpuscular HGB Conc 34 g/dL (31-36); Mean Corpuscular Hemoglobin 28 pg (27-31); Mean Corpuscular Volume 84 fL (80-94); Mean Platelet Volume 7.5 fL (7.4-10.4); Nucleated Red Blood Cells % 0.2; Platelet Count 227 10^3/uL (150-450); Red Cell Distribution Width 15 % (10-15); White Blood Count 5.2 10^3/uL (3.5-10.8)
[2019-03-23 13:11] LABS: INR 0.97 (0.82-1.09)
[2019-03-23 13:24] LABS: Albumin 4.5 g/dL (3.2-5.2); BUN/Creatinine Ratio 13.8 (8-20); Globulin 2.3 g/dL (2-4); Potassium 4.1 mmol/L (3.5-5.0); Total Bilirubin 0.4 mg/dL (0.2-1.0); Total Protein 6.8 g/dL (6.4-8.9)
--- NOTE | 2019-03-23 17:38 | ED ---
HPI Chest Pain - HPI Summary HPI Summary: 54 year old M presenting to [facility] complains of intermittent episodes of chest pain described as pressure lasting several minutes rated 4/10 in severity since this morning while lying in bed. Patient states he has been having intermittent episodes of chest pain lasting for several minutes at work for several days. Patient reports hypertension. Patient states he called Dr. Guevara's office today and was referred to the ED by a nurse. Symptoms aggravated by exertion and walking around. Symptoms alleviated by nothing. Patient states he has hx hypertension for which he is supposed to take valcartan every morning. Patient states he doesn't take his valcartan all the time as prescribed and states he last took it on Saturday03/20/19. Patient state maternal Fhx hypertension and cardiac disease. - History of Current Complaint Chief Complaint: EDChestPainROMI Time Seen by Provider: 03/23/19 17:31 Hx Obtained From: Patient Onset/Duration: Started Days Ago, Still Present Timing: Intermittent, Lasting Minutes Current Severity: Mild Pain Intensity: 4 Pain Scale Used: 0-10 Numeric Character: Pressure/Squeezing Aggravating Factor(s): Exertion, Other: - walking around Alleviating Factor(s): Nothing - Allergy/Home Medications Allergies/Adverse Reactions: Allergies Allergy/AdvReac Type Severity Reaction Status Date / Time No Known Allergies Allergy Verified 03/23/19 12:38 PMH/Surg Hx/FS Hx/Imm Hx Endocrine/Hematology History: Denies: Hx Diabetes, Hx Thyroid Disease Cardiovascular History: Reports: Hx Hypertension Comment Only: Other Cardiovascular Problems/Disorders - NORMAL STRESS TEST PERFORMED WITHIN LAST 2017 Respiratory History: Denies: Hx Asthma, Hx Chronic Obstructive Pulmonary Disease (COPD) GI History: Denies: Hx Ulcer History: Denies: Hx Renal Disease - Surgical History Surgery Procedure, Year, and Place: hemorrhoidectomy Infectious Disease History: No Infectious Disease History: Denies: Hx Clostridium Difficile, Hx Hepatitis, Hx Human Immunodeficiency Virus (HIV), Hx of Known/Suspected MRSA, Hx Shingles, Hx Tuberculosis, Hx Known/ Suspected VRE, Hx Known/Suspected VRSA, History Other Infectious Disease, Traveled Outside the [place] in Last 30 Days - Family History Known Family History: Positive: Cardiac Disease - [place] on mother's side, Hypertension, Diabetes - Social History Alcohol Use: Occasionally Hx Substance Use: No Substance Use Type: Reports: None Hx Tobacco Use: Yes Smoking Status (MU): Light Every Day Tobacco Smoker Type: Cigarettes Amount Used/How Often: 1/2 to 1/3 ppd Have You Smoked in the Last Year: Yes Review of Systems Negative: Fever Positive: Chest Pain, Other - hypertension All Other Systems Reviewed And Are Negative: Yes Physical Exam - Summary Physical Exam Summary: Appearance: The patient is well-nourished in no acute distress and in no acute pain. Skin: The skin is warm and dry, and skin color reflects adequate perfusion. HEENT: The head is normocephalic and atraumatic. The pupils are equal and reactive. The conjunctivae are clear and without drainage. Nares are patent and without drainage. Mouth reveals moist mucous membranes, and the throat is without erythema and exudate. The external ears are intact. The ear canals are patent and without drainage. The tympanic membranes are intact. Neck: The neck is supple with full range of motion and non-tender. There are no carotid bruits. There is no neck vein distension. Respiratory: Chest is non-tender. Lungs are clear to auscultation and breath sounds are symmetrical and equal. Cardiovascular: Heart is regular rate and rhythm. There is no murmur or rub auscultated. There is no peripheral edema and pulses are symmetrical and equal. Abdomen: The abdomen is soft and non-tender. There are normal bowel sounds heard in all four quadrants and there is no organomegaly palpated. Musculoskeletal: There is no back tenderness noted. Extremities are non-tender with full range of motion. There is good capillary refill. There is no peripheral edema or calf tenderness elicited. Neurological: Patient is alert and oriented to person, place and time. The patient has symmetrical motor strength in all four extremities. Cranial nerves are grossly intact. Deep tendon reflexes are symmetrical and equal in all four extremities. Psychiatric: The patient has an appropriate affect and does not exhibit any anxiety or depression. Triage Information Reviewed: Yes Vital Signs On Initial Exam: Initial Vitals Temp Pulse Resp BP Pulse Ox 98.1 F 77 16 166/102 99 03/23/19 12:37 03/23/19 12:37 03/23/19 12:37 03/23/19 12:37 03/23/19 12:37 Vital Signs Reviewed: Yes Diagnostics - Vital Signs Vital Signs Temp Pulse Resp BP Pulse Ox 03/23/19 14:15 98.5 F 79 16 198/119 99 03/23/19 12:37 98.1 F 77 16 166/102 99 - Laboratory Lab Results: Lab Results 03/23/19 03/23/19 03/23/19 Range/Units 12:50 12:50 12:50 WBC 5.2 (3.5-10.8) 10^3/uL RBC 5.40 (4.18-5.48) 10^6 /uL Hgb 15.4 (14.0-18.0) g/dL Hct 46 (42-52) % MCV 84 (80-94) fL MCH 28 (27-31) pg MCHC 34 (31-36) g/dL RDW 15 (10-15) % Plt Count 227 (150-450) 10^3/uL MPV 7.5 (7.4-10.4) fL Neut % (Auto) 43.0 % Lymph % (Auto) 44.0 % [place] % (Auto) 11.4 % Eos % (Auto) 1.2 % Baso % (Auto) 0.4 % Absolute Neuts (auto) 2.2 (1.5-7.7) 10^3/ul Absolute Lymphs (auto) 2.3 (1.0-4.8) 10^3/ul Absolute Monos (auto) 0.6 (0-0.8) 10^3/ul Absolute Eos (auto) 0.1 (0-0.6) 10^3/ul Absolute Basos (auto) 0.0 (0-0.2) 10^3/ul Absolute Nucleated RBC 0.0 10^3/ul Nucleated RBC % 0.2 INR (Anticoag Therapy) 0.97 (0.82-1.09) Sodium 139 (135-145) mmol/L Potassium 4.1 (3.5-5.0) mmol/L Chloride 107 (101-111) mmol/L Carbon Dioxide 25 (22-32) mmol/L Anion Gap 7 (2-11) mmol/L BUN 15 (6-24) mg/dL Creatinine 1.09 (0.67-1.17) mg/dL Est GFR ( Amer) 86.0 (>60) Est GFR (Non-Af Amer) 71.0 (>60) BUN/Creatinine Ratio 13.8 (8-20) Glucose 80 (70-100) mg/dL Calcium 9.0 (8.6-10.3) mg/dL Total Bilirubin 0.40 (0.2-1.0) mg/dL AST 25 (13-39) U/L ALT 30 (7-52) U/L Alkaline Phosphatase 59 (34-104) U/L Troponin I 0.00 (<0.04) ng/mL Total Protein 6.8 (6.4-8.9) g/dL Albumin 4.5 (3.2-5.2) g/dL Globulin 2.3 (2-4) g/dL Albumin/Globulin Ratio 2.0 (1-3) 03/23/19 Range/Units 15:33 WBC (3.5-10.8) 10^3/uL RBC (4.18-5.48) 10^6 /uL Hgb (14.0-18.0) g/dL Hct (42-52) % MCV (80-94) fL MCH (27-31) pg MCHC (31-36) g/dL RDW (10-15) % Plt Count (150-450) 10^3/uL MPV (7.4-10.4) fL Neut % (Auto) % Lymph % (Auto) % [place] % (Auto) % Eos % (Auto) % Baso % (Auto) % Absolute Neuts (auto) (1.5-7.7) 10^3/ul Absolute Lymphs (auto) (1.0-4.8) 10^3/ul Absolute Monos (auto) (0-0.8) 10^3/ul Absolute Eos (auto) (0-0.6) 10^3/ul Absolute Basos (auto) (0-0.2) 10^3/ul Absolute Nucleated RBC 10^3/ul Nucleated RBC % INR (Anticoag Therapy) (0.82-1.09) Sodium (135-145) mmol/L Potassium (3.5-5.0) mmol/L Chloride (101-111) mmol/L Carbon Dioxide (22-32) mmol/L Anion Gap (2-11) mmol/L BUN (6-24) mg/dL Creatinine (0.67-1.17) mg/dL Est GFR ( Amer) (>60) Est GFR (Non-Af Amer) (>60) BUN/Creatinine Ratio (8-20) Glucose (70-100) mg/dL Calcium (8.6-10.3) mg/dL Total Bilirubin (0.2-1.0) mg/dL AST (13-39) U/L ALT (7-52) U/L Alkaline Phosphatase (34-104) U/L Troponin I 0.00 (<0.04) ng/mL Total Protein (6.4-8.9) g/dL Albumin (3.2-5.2) g/dL Globulin (2-4) g/dL Albumin/Globulin Ratio (1-3) Result Diagrams: 03/23/19 12:50 03/23/19 12:50 Lab Statement: Any lab studies that have been ordered have been reviewed, and results considered in the medical decision making process. - EKG 1231 Cardiac Rate: NL - 82 BPM EKG Rhythm: Sinus Rhythm Summary of EKG Findings: Normal sinus rhythm, normal ST, no ectopy, no STEMI. LVH Chest Pain Course/Dx - Course Course Of Treatment: Mr. Talavera presented complaining of chest pain. He was noted to be hypertensive. EKG, chest x-ray and labs including a delayed troponin were all negative. He was given IV Vasotec and his blood pressure did improve some. He was unwilling to stay for any longer understandably as he was in the waiting room for a long time and is busy Saturday. I recommended close follow-up with his PCP. He is on multiple antihypertensive medications and takes them only intermittently and I encouraged him to take them routinely. - Diagnoses Provider Diagnoses: Chest pain Discharge ED - Sign-Out/Discharge Documenting (check all that apply): Patient Departure - Discharge Patient Received Moderate/Deep Sedation with Procedure: No - Discharge Plan Condition: Stable Disposition: HOME Patient Education Materials: Chest Pain (ED) Forms: *Work Release Referrals: Emmett Guevara MD [Primary Care Provider] - 2 Days Additional Instructions: Follow up with your primary care provider in the next 2-3 days. Return to the Emergency Department for new or worsening symptoms. - Billing Disposition and Condition Condition: STABLE Disposition: Home - Attestation Statements Document Initiated by Scribe: Yes Documenting Scribe: Tiffani Dietz Provider For Whom Scribe is Documenting (Include Credential): Sunny Recio MD Scribe Attestation: I, Tiffani Dietz, scribed for Sunny Recio MD on 03/23/19 at 2053. Scribe Documentation Reviewed: Yes Provider Attestation: The documentation as recorded by the michelineibe, Tiffani Dietz accurately reflects the service I personally performed and the decisions made by me, Sunny Recio MD Status of Scribe Document: Viewed
[2019-03-23] MEDS ORDERED: Enalaprilat IV* 1.25 MG/ML 2 ML VIAL (2.5 MG) IV ONE (17:42)
[2019-03-23 19:07] VITALS: BP 179/100
== END 2019-03-23 19:06 | disposition home or self-care (01) ==
LOC: ED 12:30
DX: R07.9 Chest pain, unspecified (principal); I10 Essential (primary) hypertension; F17.210 Nicotine dependence, cigarettes, uncomplicated
CPT/HCPCS: 36415; 80053; 84484; 85025; 85610; 93005; 96374; 99283